=== PATIENT | male | born 1995 | race Caucasian/White ===

== ENCOUNTER 2017-02-28 16:54 | Observation (INO) | payer OTHER ==
[~2017-02-28] VITALS: Ht 180.3 cm; Wt 96.3 kg
[2017-02-28] MEDS ORDERED: ISOVUE-370 76% 100ML VIAL (Q9967) As Ordered ONE (17:08)
[2017-02-28] MEDS ORDERED: NS 1,000 ML IV ONE (17:15)
[2017-02-28] MEDS ORDERED: ONDANSETRON 4MG/2ML VIAL (J2405) IV ONE (17:15)
[2017-02-28] MEDS ORDERED: MORPHINE 4 MG/ML 1ML SYRINGE IV PRN (17:15)
[2017-02-28 17:30] LABS: VENOUS BASE EXCESS -2.5 (-2.0-2.0); VENOUS O2 SATURATION 89.5 % (60.0-80.0); VENOUS PARTIAL PRESSURE CO2 39.1 mmHg (38.0-50.0); VENOUS PARTIAL PRESSURE O2 58.5 mmHg (30.0-50.0); VENOUS STANDARD HCO3 22.2 MEQ/L; VENOUS TOTAL CO2 23.6 MEQ/L (24.0-28.0)
[2017-02-28 17:34] LABS: BASO # 0.1 K/mm3 (0.0-0.2); BASO % 0.4 % (0.0-1.0); EOS # 0.9 K/mm3 (0.0-0.50); EOS % 5.2 % (0.0-3.0); LARGE UNSTAINED CELL # 0.3 K/mm3 (0.0-0.4); LARGE UNSTAINED CELL % 1.6 % (0.0-4.0); LYMPH # 3.3 K/mm3 (1.5-6.5); LYMPH % 18.8 % (24.0-44.0); MEAN CORPUSCULAR HEMOGLOBIN 29.4 pg (27.0-33.0); MEAN CORPUSCULAR HGB CONC 33.8 g/dl (32.0-36.5); MEAN CORPUSCULAR VOLUME 86.8 fl (80.0-96.0); MONO # 0.8 K/mm3 (0.0-0.8); MONO % 4.3 % (0.0-5.0); NEUTROPHILS # 12.4 K/mm3 (1.8-7.7); NEUTROPHILS % 69.7 % (36.0-66.0); PLATELET COUNT, AUTOMATED 296 k/mm3 (150-450); RED CELL DISTRIBUTION WIDTH 13.3 % (11.5-14.5); WHITE BLOOD COUNT 17.7 K/mm3 (4.0-10.0)
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
[2017-02-28 18:01] LABS: ALBUMIN 4.2 GM/DL (3.2-5.2); ALBUMIN/GLOBULIN RATIO 1.14 (1.00-1.93); ALKALINE PHOSPHATASE 108 U/L (45-117); ALT/SGPT 43 U/L (12-78); AMYLASE 32 U/L (25-115); ANION GAP 12 MEQ/L (8-16); AST/SGOT 42 U/L (15-37); BILIRUBIN,DIRECT 0.2 MG/DL (0.0-0.2); BILIRUBIN,TOTAL 0.8 MG/DL (0.2-1.0); BLOOD UREA NITROGEN 14 MG/DL (7-18); CALCIUM LEVEL 9.6 MG/DL (8.5-10.1); CARBON DIOXIDE LEVEL 23 MEQ/L (21-32); CHLORIDE LEVEL 105 MEQ/L (98-107); CREATININE FOR GFR 1.13 MG/DL (0.70-1.30); GLOMERULAR FILTRATION RATE > 60.0 (>60); GLUCOSE, FASTING 132 MG/DL (70-105); POTASSIUM SERUM 3.5 MEQ/L (3.5-5.1); SODIUM LEVEL 140 MEQ/L (136-145); TOTAL PROTEIN 7.9 GM/DL (6.4-8.2)
[2017-02-28] MEDS ORDERED: PERCOCET 5MG/325MG TAB PO PRN ×2 (18:15)
[2017-02-28] MEDS ORDERED: ONDANSETRON 4MG/2ML VIAL (J2405) IV PRN (18:15)
[2017-02-28] MEDS ORDERED: ceFAZolin SOD 1 GM in D5W MINI-BAG PLUS 50 ML IV ONE (18:15)
[2017-02-28] MEDS ORDERED: ACETAMINOPHEN TAB 650MG DOSE (2X325MG) PO PRN (18:15)
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
[2017-02-28] MEDS ORDERED: LIDOCAINE 2% MDV 20 ML VIAL As Ordered ONE (18:23)
[2017-02-28] MEDS ORDERED: NEOSPORIN OINT 0.9 GM PKT (FLOOR STOCK) As Ordered ONE ×2 (18:29→20:14)
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
[2017-02-28] MEDS: KETOROLAC 30 MG/ML VIAL (J1885) IV PRN (20:25)
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
[2017-02-28 21:05] VITALS: BP 133/65
[2017-02-28 23:20] LABS: METHADONE URINE NEGATIVE (NEGATIVE)
[2017-03-01] VITALS: BP 127/67
[2017-03-01] MEDS: LR 1,000 ML IV SCH ×2 (00:25→06:57)
[2017-03-01 04:00] VITALS: BP 124/55
[2017-03-01] MEDS: KETOROLAC 30 MG/ML VIAL (J1885) IV PRN ×3 (06:58→21:17)
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
[2017-03-01 08:00] VITALS: BP 118/56
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
[2017-03-01] MEDS: BACITRACIN OINT 30GM TOP SCH (10:22)
[2017-03-01] MEDS: PERCOCET 5MG/325MG TAB PO PRN (14:36)
[2017-03-01 16:00] VITALS: BP 121/61
[2017-03-01 20:00] VITALS: BP 121/59
[2017-03-01] MEDS: ENOXAPARIN 40 MG/0.4 ML SYRINGE (J1650) SC SCH (20:55)
[2017-03-02] VITALS: BP 125/66
[2017-03-02 06:40] LABS: BASO % 0.3 % (0.0-1.0); EOS # 0.8 K/mm3 (0.0-0.50); EOS % 9.6 % (0.0-3.0); LARGE UNSTAINED CELL # 0.2 K/mm3 (0.0-0.4); LARGE UNSTAINED CELL % 2.2 % (0.0-4.0); LYMPH # 1.2 K/mm3 (1.5-6.5); LYMPH % 14.1 % (24.0-44.0); MEAN CORPUSCULAR HEMOGLOBIN 29.7 pg (27.0-33.0); MEAN CORPUSCULAR HGB CONC 35.2 g/dl (32.0-36.5); MEAN CORPUSCULAR VOLUME 84.4 fl (80.0-96.0); MONO # 0.4 K/mm3 (0.0-0.8); MONO % 5.5 % (0.0-5.0); NEUTROPHILS # 5.6 K/mm3 (1.8-7.7); NEUTROPHILS % 68.2 % (36.0-66.0); PLATELET COUNT, AUTOMATED 196 k/mm3 (150-450); RED CELL DISTRIBUTION WIDTH 13.3 % (11.5-14.5); WHITE BLOOD COUNT 8.2 K/mm3 (4.0-10.0)
[2017-03-02 06:55] LABS: ALBUMIN/GLOBULIN RATIO 0.83 (1.00-1.93); ALKALINE PHOSPHATASE 70 U/L (45-117); ALT/SGPT 51 U/L (12-78); ANION GAP 10 MEQ/L (8-16); AST/SGOT 150 U/L (15-37); BILIRUBIN,TOTAL 1.2 MG/DL (0.2-1.0); BLOOD UREA NITROGEN 9 MG/DL (7-18); CALCIUM LEVEL 8.2 MG/DL (8.5-10.1); CARBON DIOXIDE LEVEL 25 MEQ/L (21-32); CHLORIDE LEVEL 108 MEQ/L (98-107); CREATININE FOR GFR 0.71 MG/DL (0.70-1.30); GLOMERULAR FILTRATION RATE > 60.0 (>60); GLUCOSE, FASTING 84 MG/DL (70-105); POTASSIUM SERUM 3.5 MEQ/L (3.5-5.1); SODIUM LEVEL 143 MEQ/L (136-145); TOTAL PROTEIN 6.6 GM/DL (6.4-8.2)
[2017-03-02 08:00] VITALS: BP 122/72
[2017-03-02] MEDS: PERCOCET 5MG/325MG TAB PO PRN ×2 (10:52→15:37)
[2017-03-02] MEDS: BACITRACIN OINT 30GM TOP SCH (10:53)
[2017-03-02] MEDS: MORPHINE 4 MG/ML 1ML SYRINGE IV PRN ×2 (12:15→17:51)
[2017-03-02 15:58] VITALS: BP 127/70
[2017-03-02 20:00] VITALS: BP 119/69
[2017-03-02] MEDS: KETOROLAC 30 MG/ML VIAL (J1885) IV PRN (20:24)
[2017-03-02] MEDS: ENOXAPARIN 40 MG/0.4 ML SYRINGE (J1650) SC SCH (20:25)
[2017-03-03 00:30] VITALS: BP 127/65
[2017-03-03 08:00] VITALS: BP 128/86
[2017-03-03] MEDS: BACITRACIN OINT 30GM TOP SCH (08:42)
[2017-03-03] MEDS ORDERED: PERCOCET PO (10:54)
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
== END 2017-03-03 12:30 | disposition home or self-care (01) ==
LOC: M ED 16:54 → EDBD 16:54 → M ED INP 18:10 → M PED 20:58
PROVIDERS: ADMIT Surgery; ATTEND Surgery
DX: S32.501A Unspecified fracture of right pubis, initial encounter for closed fracture (principal); M25.562 Pain in left knee; M79.81 Nontraumatic hematoma of soft tissue; S71.112A Laceration without foreign body, left thigh, initial encounter; S61.218A Laceration without foreign body of other finger without damage to nail, initial encounter; S20.212A Contusion of left front wall of thorax, initial encounter; S70.12XA Contusion of left thigh, initial encounter; S81.801A Unspecified open wound, right lower leg, initial encounter; V19.60XA Unspecified pedal cyclist injured in collision with unspecified motor vehicles in traffic accident, initial encounter; Y92.410 Unspecified street and highway as the place of occurrence of the external cause; Y99.9 Unspecified external cause status; Y93.89 Activity, other specified
CPT/HCPCS: 36415; 70450; 71260; 72125; 73130; 73564; 74177; 80048; 80053; 80076; 80307; 81001; 82150; 82550; 82553; 82803; 83605; 83690; 85025; 85610; 85730; 86850; 86900; 86901; 93041; 96361; 96365; 96372; 96375; 96376; 99285; G0480; J0690; J1650; J1885; J2405; Q9967